=== PATIENT | female | born 1965 | race Caucasian/White ===

== ENCOUNTER 2020-02-28 08:00 | Outpatient (RCR) | payer OTHER, SELFPAY ==
[2020-02-07 16:31] VITALS: BMI 25.2
--- NOTE | 2020-02-21 07:30 | HP.PTEVAL ---
Patient's Visit Information LATISHA WANG is a 54 year old F referred to Physical Therapy by ABHAY Klein with a diagnosis of R shoulde strain, R medial epicondylitis. Date of Evaluation: 02/15/20 Physical Therapist: Jayme Gotti DPT - Visit Plan Frequency: 2-3x /Week Duration: 4 Weeks Plan: Start wtih DFM to R medial epicondyle, R wrist flexor eccentrics, R shoulder ROM as tolerated. INferior glides of GH joint, pec stretching, wrist flexor stretching. May use US to manage symptoms. Progressing to work related activties. - Subjective Subjective: Pt. is here today for her initial evaluation of diagnosis of R shoulder strain and medial epocondylitis. pt. 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 Pt. has been having pain since. Pt. denies N/T. Pt. has been working on ROM with minmal success. Pt. reports increased pain at laterl aspect of shoulder mostly with attempting to reach over head or lift. Pt. is alos having medial elobow pain with gripping and with holding objects. Pt. reports this symptom has been progressively getting worse. Pt. has not doing any stretchcing, mild relief with ice. pt. is hopeful to reduce symptoms in order to get back to all recreational activiies without limiations. - Pain R shoulder Pain Intensity (Out of 10): 4 Pain Intensity Range: 2, 8 R medial elbow Pain Intensity (Out of 10): 2 Pain Intensity Range: 1, 5 - Objective POSTURE: Slight FH and anterior shoulder positioning. SLight increase in thoracic kyphosis. PALPATION: Pt. has increased pain at latral subacromial space, slight pain at biceps tendong. Pt. has greatest pain iwth palpation to medial epicondyle of R elbow. NEURO: Pt. has normal sensation and normal N/T and normal DTR of B UEs. ROM: R shoulder; PT. has close to full ROM of R shoulder, but has increased pain starting ~90deg of abd or flexion. NO pain with extnsion, ER to C4 increase NW, and IR to L3 increase NW. Pt. has normal elbow ROM. MMT: R wrist: 5/5 throughout (increase NW with flexion), elbow- 5/5 throughout NE. Shoulder- flexion 4/5 increase NW, abd 4/5 increase in pain. exten 5/5 NE, IR 4+/5 increase NW, ER 4+/5 increase NW. - Special Tests R Shoulder Drop Sign - IS Test: Negative R Shoulder Empty Can - SS: Positive R Shoulder Belly Press - SupScap: Negative R Shoulder Neer - Impingement: Positive R Shoulder Arguello [place] - Impingement: Positive R Shoulder Biceps Load Test - Labrum: Negative R Shoulder Speeds Test - Labrum/Biceps: Positive - Goals Goal 1:: LTG: Pt. to be I with HEP. Goal Time Frame: 4-6 Weeks Goal 2:: STG: pt. to sleep throughout the night without increase in symptoms. Goal Time Frame: 2-4 Weeks Goal 3:: STG: Pt. to have full ROM of R shoulder without increase in symptoms. Goal Time Frame: 2-4 Weeks Goal 4:: LTG: PT. to have increased R shoulder strength by 1/2 grade. Goal Time Frame: 4-6 Weeks Goal 5:: LTG: PT. to have no pain with all R UE activities inlcuding dressing, gripping, lifting and other work related activities. Goal Time Frame: 4-6 Weeks - Rehabilitation Potential Physical Therapy Diagnosis: Pt. has signs and symptoms consistent with R shoulde strain, R medial epicondylitis. Pt. has + signs of strain and impingmement, but mech of injury did not suggest tear. Pt. most likely has a strain of R shoulder musculature and medial epicondylitis. Pt. would benefit from PT to increase ROM and decraese pain allowing her to return to work without symptoms. Rehabilitation Potential: Good - Anticipated Interventions Patient/Client Instruction: Educate patient on: Condition, Plan of Care, Risk Factors, Benefits of Fitness Program For the Purpose of:: To improve decision making, To facilitate caregiver knowledge, To improve self management, To prevent re-injury, To improve ability to perform tasks related to life management, To improve tolerance to ADL's Therapeutic Exercise to Include: Strength training, Power training, Endurance training, Postural training, Flexibilty training, Passive ROM, Active ROM, Shanelle Exercises, Scapular Strength/Stabilization For the Purpose of:: To decrease pain, To decrease swelling/inflammation, To increase ROM, To improve nutrient delivery to tissue, To increase oxygenation perfusion, To improve muscle performance and motor function, To improve health of tissue, To decrease soft tissue restriction, To increase flexibility/ROM Manual Therapy Techniques to Include: Mobilization, Passive ROM, Functional dry needling, Soft tissue mobilization For the Purpose of:: To decrease pain, To decrease swelling/inflammation, To increase ROM, To improve nutrient delivery to tissue, To increase oxygenation perfusion Ultrasound (thermal/non thermal): Yes For the Purpose of:: To decrease pain, To decrease swelling/inflammation, To increase ROM Thank you for the opportunity to evaluate your patient. For Medicare and Medicare HMO plans, please review the plan of care and approve it. It will need to be FAXED BACK to us at [phone] for Medicare purposes. For Medicare only, by signing this I certify the plan of care. Please let me know if there are questions or concerns regarding this plan of care. Physician Signature: Date:
--- NOTE | 2020-03-14 10:50 | HP.PT.NRP ---
LATISHA WANG was seen in my office for initial evaluation on 02/15/20. The following Plan of Care was established for this patient: Initial Frequency: 2-3x /Week Initial Duration: 4 Weeks Patient/Client Instruction: Educate patient on: Condition, Plan of Care, Risk Factors, Benefits of Fitness Program For the Purpose of:: To improve decision making, To facilitate caregiver knowledge, To improve self management, To prevent re-injury, To improve ability to perform tasks related to life management, To improve tolerance to ADL's Therapeutic Exercise to Include: Strength training, Power training, Endurance training, Postural training, Flexibilty training, Passive ROM, Active ROM, Shanelle Exercises, Scapular Strength/Stabilization For the Purpose of:: To decrease pain, To decrease swelling/inflammation, To increase ROM, To improve nutrient delivery to tissue, To increase oxygenation perfusion, To improve muscle performance and motor function, To improve health of tissue, To decrease soft tissue restriction, To increase flexibility/ROM Manual Therapy Techniques to Include: Mobilization, Passive ROM, Functional dry needling, Soft tissue mobilization For the Purpose of:: To decrease pain, To decrease swelling/inflammation, To increase ROM, To improve nutrient delivery to tissue, To increase oxygenation perfusion Ultrasound (thermal/non thermal): Yes For the Purpose of:: To decrease pain, To decrease swelling/inflammation, To increase ROM This patient was last seen in our office 02/28/20. Pertinent comments regarding their Physical therapy will appear below: Pt. was seen for her R shoulder pain and R medial epicondylitis. Pt. came to 4 visits, and did not attend her last 3 with one being cancled due to health issues with her father. She did not attend her last visit. She has not been seen in several weeks and will be DC from PT at this point intime. At this point I will be discontinuing this patient from physical therapy. I would be happy to see this patient again in the future if found appropriate by the physician. Thank you! Jayme Gotti DPT
== END 2020-02-28 19:00 | disposition home or self-care (01) ==
LOC: PT 08:00
PROVIDERS: Referring Provider Physician Assistant; Visit Provider Physician Assistant
DX: M77.01 Medial epicondylitis, right elbow (principal); S46.911D Strain of unspecified muscle, fascia and tendon at shoulder and upper arm level, right arm, subsequent encounter
CPT/HCPCS: 97035; 97110; 97140; 97161

== ENCOUNTER 2021-02-26 09:02 | Outpatient (RCR) | payer BC, SELFPAY ==
[2020-02-28 16:27] VITALS: BMI 25.2
== END 2021-04-14 23:59 ==
LOC: IMMUN 09:02
PROVIDERS: Referring Provider Family Medicine; Visit Provider Family Medicine
DX: Z23 Encounter for immunization (principal)
CPT/HCPCS: 0001A; 91300